=== PATIENT | male | born 1935 | race Caucasian/White ===

== ENCOUNTER → 2018-08-21 13:25 | Outpatient (CLI) | payer MEDICARE, OTHER, SELFPAY ==
--- NOTE | 2018-08-21 10:00 | DI.ECHO.S_ITS ---
Echocardiogram Report + + :Name: NGUYỄN SAMANO Study Date: 08/21/2018 Height: 73 in : :[facility] Exam Location: [facility] Weight: 252 lb : : Gender: Male BSA: 2.4 m2 : :: 1935 Age: 82 yrs BP: 118/80 mmHg: :Reason For Study: HEART FAILURE : : Performed By: Dallin Hairston : :Referring: CLARITA BLACK : + + Interpretation Summary The left ventricle is normal in size. The left ventricular ejection fraction is normal. There is posterolateral wall hypokinesis. The right ventricle is normal size. Both atria are normal in size. There is mild mitral regurgitation. There is discrete nodular thickening of the non- coronary cusp. The right ventricular systolic pressure is estimated to be at least 24 mmHg based on an estimated right atrial pressure of 3 mm Hg. -Compared to prior echo on 08/21/2017, the LV ejection fraction has improved although it might have been underestimated previously. Procedure: A two-dimensional transthoracic echocardiogram with color flow and Doppler was performed. The study quality was technically adequate. Comparison is made with the echocardiogram of 08/18/17. The patient was in normal sinus rhythm during the exam. The patient had frequent PACs during the exam. Left Ventricle: The left ventricle is normal in size. There is normal left ventricular wall thickness. The ejection fraction is estimated to be 55-60%. The left ventricular ejection fraction is normal. There is posterolateral wall hypokinesis. Diastolic function could not be accurately assessed due to contradictory data. Right Ventricle: The right ventricle is normal size. Right ventricular systolic function is at the lower limits of normal. Atria: Both atria are normal in size. The interatrial septum is intact with no evidence for an atrial septal defect. Mitral Valve: There is mild mitral annular calcification. There is no mitral valve stenosis. There is mild mitral regurgitation. Aortic Valve: The aortic valve is trileaflet. The aortic valve is mildly calcified. There is discrete nodular thickening of the non- coronary cusp. There is no aortic valve stenosis. No aortic regurgitation is present. Tricuspid Valve: The tricuspid valve is normal in structure and function. There is mild tricuspid regurgitation. The right ventricular systolic pressure is estimated to be at least 24 mmHg based on an estimated right atrial pressure of 3 mm Hg. Pulmonic Valve: The pulmonic valve is normal in structure and function. There is mild pulmonic regurgitation. Great Vessels: The aortic root is normal size. The dimensions of the ascending aorta are normal. The pulmonary artery is normal size. The IVC is of normal diameter and collapses greater than 50% with a sniff. This suggests a low right atrial pressure of 3 mm Hg. Pericardium/ Pleura There is no pericardial effusion. There is no pleural effusion. MMode/2D Measurements & Calculations LVIDd: 5.3 cm LVOT diam: 2.2 cm LVIDs: 3.2 cm Ao root diam: 3.6 cm FS: 39.6 % Aortic Jxn: 2.6 cm EPSS: 0.77 cm asc Aorta Diam: 3.4 cm IVSd: 1.1 cm LVPWd: 1.1 cm LV hobbs. diameter/BSA (cm/m^2): 2.2 LV sys. diameter/BSA (cm/m^2): 1.3 LA dimension: 4.5 cm RA long axis: 5.5 cm LA A2 area: 22.6 cm2 RA area: 19.3 cm2 LA A4 area: 22.3 cm2 RA vol: 57.5 ml LA length (vol): 6.0 cm RA : 24.2 ml/m2 LA vol: 71.8 ml IVC diam: 1.8 cm LA vol index: 30.2 ml/m2 Doppler Measurements & Calculations Ao V2 max: 170.8 cm/sec LVOT Max Oleksandr: 99.4 cm/sec Ao V2 mean: 131.6 cm/sec LV V1 max P.0 mmHg Ao max P.7 mmHg LV V1 VTI: 21.7 cm Ao mean P.4 mmHg MARK(I,D): 1.9 cm2 Ao V2 VTI: 43.1 cm MARK(V,D): 2.1 cm2 sev ratio: 0.50 MARK indexed to BSA (cm^2/m^2): 0.78 MV E max oleksandr: 106.2 cm/sec TR max oleksandr: 230.1 cm/sec MV A max oleksandr: 93.9 cm/sec TR max P.2 mmHg MV E/A: 1.1 PA V2 max: 93.4 cm/sec Med Peak E' Oleksandr: 4.1 cm/sec PA V2 mean: 75.0 cm/sec E/E' med: 25.7 PA mean P.3 mmHg Lat Peak E' Oleksandr: 6.0 cm/sec PA pr(Accel): 14.1 mmHg E/E' lat: 17.7 PA Accel Time: 0.14 sec E/e' average: 21.7 MV dec time: 0.24 sec SV(LVOT): 80.1 ml _ Electronically signed by: Jett Kendrick M.D. on Reading Physician:08/21/2018 09:02 PM
== END ==
PROVIDERS: PCP Family Medicine; Visit Provider Physician Assistant
DX: I08.1 Rheumatic disorders of both mitral and tricuspid valves (principal); I50.9 Heart failure, unspecified
CPT/HCPCS: 93306